=== PATIENT | male | born 1965 | race African-American/Black ===

== ENCOUNTER 2021-02-11 12:31 | Inpatient (IN) | payer OTHER ==
[~2021-02-11] VITALS: Ht 188 cm; Wt 94.8 kg
[2021-02-11 19:00] VITALS: BP 106/65
[2021-02-11] MEDS ORDERED: ACETAMINOPHEN 325 MG TABLET PO PRN (19:00)
[2021-02-11] MEDS ORDERED: BISMUTH SUBSALICYLATE 524 MG/30 ML SUSPENSION UDCUP PO PRN (19:15)
[2021-02-11] MEDS ORDERED: GLUCAGON,HUMAN RECOMBINANT 1 MG VIAL IM PRN (19:30)
[2021-02-11] MEDS ORDERED: IPRATROPIUM BROMIDE 0.5 MG/2.5 ML NEB SOLUTION NEB PRN (19:45)
[2021-02-11] MEDS ORDERED: DEXTROSE 40% LEMON 37.5 GM/TUBE GEL [15 GM GLUCOSE] PO PRN (19:45)
[2021-02-11] MEDS ORDERED: LOPERAMIDE HCL 2 MG CAPSULE PO PRN (19:45)
[2021-02-11] MEDS ORDERED: ONDANSETRON HCL 4 MG TABLET PO PRN (19:45)
[2021-02-11] MEDS ORDERED: ALBUTEROL SULFATE 2.5 MG/0.5 ML NEB SOLUTION NEB PRN (19:45)
[2021-02-11] MEDS ORDERED: DEXTROSE 50%-WATER 25 GM/50 ML SYRINGE IVP PRN (19:45)
[2021-02-11] MEDS ORDERED: INSULIN LISPRO 100 UNITS/ML SQ PRN (19:45)
[2021-02-11] MEDS: METOPROLOL TARTRATE 25 MG TABLET PO SCH (21:00)
[2021-02-11] MEDS: SENNA 187 MG TABLET PO SCH (21:16)
[2021-02-11] MEDS: GABAPENTIN 300 MG CAPSULE PO SCH (21:16)
[2021-02-11] MEDS: DOCUSATE SODIUM 100 MG CAPSULE PO SCH (21:16)
[2021-02-11 21:52] VITALS: BP 95/61
[2021-02-11 23:51] LABS: GLUCOMETER DEV NAME(LOC) 2WR.2B; GLUCOSE,POINT OF CARE 96 MG/DL (70-110)
[2021-02-12] VITALS (9 sets, daily range): BP systolic 87–121; BP diastolic 40–68
[2021-02-12] MEDS: PANTOPRAZOLE SODIUM 40 MG DR TABLET PO SCH (06:02)
[2021-02-12 06:25] LABS: GLUCOMETER DEV NAME(LOC) 2WR.2B; GLUCOSE,POINT OF CARE 72 MG/DL (70-110)
[2021-02-12] MEDS ORDERED: SEVELAMER CARBONATE 800 MG TABLET PO SCH (07:30)
[2021-02-12] MEDS: LACTOBAC ACID/BULG/BIFID/THERM TABLET PO SCH (08:23)
[2021-02-12] MEDS: VITAMIN B COMP/VIT C/FOLIC ACID CAPSULE PO SCH (08:23)
[2021-02-12] MEDS: METOPROLOL TARTRATE 25 MG TABLET PO SCH ×2 (08:27→21:03)
[2021-02-12] MEDS: DOCUSATE SODIUM 100 MG CAPSULE PO SCH ×2 (08:28→21:00)
[2021-02-12] MEDS: GABAPENTIN 300 MG CAPSULE PO SCH ×3 (08:28→20:57)
[2021-02-12] MEDS ORDERED: EPOETIN ALFA 10,000 UNITS/ML 2 ML VIAL SQ SCH (09:00)
[2021-02-12] MEDS ORDERED: INSULIN GLARGINE,HUM.REC.ANLOG 100 UNITS/ML SQ SCH (09:00)
[2021-02-12 09:24] LABS: BASOPHILS % (AUTO) 0.7 % (0.0-2.0); HEMATOCRIT 31.5 % (41-53); LYMPHOCYTES # (AUTO) 3.4 K/uL (1.0-4.8); LYMPHOCYTES % (AUTO) 36.3 % (22.0-44.0); MEAN CORPUSCULAR HEMOGLOBIN 29.6 pg (26.0-34.0); MEAN CORPUSCULAR HGB CONC 31.7 G/dL (31.0-37.0); MEAN CORPUSCULAR VOLUME 94 fL (80-100); MONOCYTES # (AUTO) 0.6 K/uL (0.1-1.0); MONOCYTES % (AUTO) 6.3 % (2.0-9.0); NEUTROPHILS # (AUTO) 5.2 K/uL (1.8-7.7); NEUTROPHILS % (AUTO) 54.7 % (40.0-70.0); PLATELET COUNT (AUTO) 303 K/uL (150-450); RED BLOOD CELL COUNT(AUTO) 3.37 MIL/uL (4.50-5.90); RED CELL DISTRIBUTION WIDTH 17.7 % (11.5-14.5)
[2021-02-12 09:41] LABS: ALBUMIN 2.8 g/dL (3.4-5.0); BILIRUBIN,TOTAL 0.2 mg/dL (0.1-1.0); CALCIUM, TOTAL 9.1 mg/dL (8.8-10.5); CREATININE 2.09 mg/dL (0.60-1.30); POTASSIUM 4.7 mmol/L (3.5-5.1); TOTAL PROTEIN, SERUM 7.6 g/dL (6.4-8.2)
[2021-02-12 12:30] LABS: GLUCOMETER DEV NAME(LOC) 2WR.2B; GLUCOSE,POINT OF CARE 65 MG/DL (70-110)
[2021-02-12] MEDS: SEVELAMER CARBONATE 800 MG POWDER PACKET PO SCH ×2 (12:52→17:50)
[2021-02-12 13:22] LABS: GLUCOMETER DEV NAME(LOC) 2WR.2B; GLUCOSE,POINT OF CARE 88 MG/DL (70-110)
[2021-02-12 13:22] LABS: GLUCOMETER DEV NAME(LOC) 2WR.1C; GLUCOSE,POINT OF CARE 107 MG/DL (70-110)
[2021-02-12 19:21] LABS: GLUCOMETER DEV NAME(LOC) 2WR.2B; GLUCOSE,POINT OF CARE 98 MG/DL (70-110)
[2021-02-12] MEDS: SENNA 187 MG TABLET PO SCH (21:00)
[2021-02-12] MEDS: CHLORHEXIDINE GLUCONATE 4% 118 ML TOPICAL LIQUID TP SCH (21:03)
[2021-02-12 22:51] LABS: GLUCOMETER DEV NAME(LOC) 2WR.1C; GLUCOSE,POINT OF CARE 95 MG/DL (70-110)
[2021-02-13 00:21] VITALS: BP 97/61
[2021-02-13] MEDS: PANTOPRAZOLE SODIUM 40 MG DR TABLET PO SCH (06:24)
[2021-02-13 06:39] LABS: GLUCOMETER DEV NAME(LOC) 2WR.2B; GLUCOSE,POINT OF CARE 77 MG/DL (70-110)
[2021-02-13] MEDS ORDERED: SEVELAMER CARBONATE 800 MG TABLET PO SCH (07:30)
[2021-02-13] MEDS: SEVELAMER CARBONATE 800 MG POWDER PACKET PO SCH ×3 (08:58→20:20)
[2021-02-13 09:00] VITALS: BP 120/71
[2021-02-13] MEDS: METOPROLOL TARTRATE 25 MG TABLET PO SCH ×2 (09:00→20:22)
[2021-02-13] MEDS: PARICALCITOL 1 MCG CAPSULE PO SCH (09:01)
[2021-02-13] MEDS: DOCUSATE SODIUM 100 MG CAPSULE PO SCH ×2 (09:01→20:24)
[2021-02-13] MEDS: LACTOBAC ACID/BULG/BIFID/THERM TABLET PO SCH (09:01)
[2021-02-13] MEDS: GABAPENTIN 300 MG CAPSULE PO SCH ×3 (09:01→20:22)
[2021-02-13] MEDS: VITAMIN B COMP/VIT C/FOLIC ACID CAPSULE PO SCH (09:01)
[2021-02-13] MEDS: EPOETIN ALFA 10,000 UNITS/ML VIAL SQ SCH (09:03)
[2021-02-13] MEDS: INSULIN GLARGINE,HUM.REC.ANLOG 100 UNITS/ML SQ SCH (09:08)
[2021-02-13 12:27] LABS: GLUCOMETER DEV NAME(LOC) 2WR.1C; GLUCOSE,POINT OF CARE 112 MG/DL (70-110)
[2021-02-13] MEDS ORDERED: SODIUM CHLORIDE 0.9% 1,000 ML ONE ×2 (15:24→15:25)
[2021-02-13 16:00] VITALS: BP 101/72
[2021-02-13] MEDS ORDERED: HEPARIN SODIUM,PORCINE 1,000 UNITS/ML VIAL ONE (16:40)
[2021-02-13] MEDS ORDERED: MANNITOL 25%-12.5 GM/50 ML VIAL IVP ONE (16:40)
[2021-02-13 17:35] LABS: CALCIUM, TOTAL 8.5 mg/dL (8.8-10.5); CREATININE 1.55 mg/dL (0.60-1.30); POTASSIUM 3.5 mmol/L (3.5-5.1)
[2021-02-13 19:55] VITALS: BP 103/69
[2021-02-13 20:12] LABS: GLUCOMETER DEV NAME(LOC) 2WR.1C; GLUCOSE,POINT OF CARE 80 MG/DL (70-110)
[2021-02-13] MEDS: CHLORHEXIDINE GLUCONATE 4% 118 ML TOPICAL LIQUID TP SCH (20:21)
[2021-02-13] MEDS: SENNA 187 MG TABLET PO SCH (20:24)
[2021-02-13 22:38] LABS: GLUCOMETER DEV NAME(LOC) 2WR.1C; GLUCOSE,POINT OF CARE 84 MG/DL (70-110)
[2021-02-14 03:00] VITALS: BP 102/62
[2021-02-14 05:41] LABS: GLUCOMETER DEV NAME(LOC) 2WR.2B; GLUCOSE,POINT OF CARE 74 MG/DL (70-110)
[2021-02-14] MEDS: PANTOPRAZOLE SODIUM 40 MG DR TABLET PO SCH (05:46)
[2021-02-14 08:15] VITALS: BP 105/65
[2021-02-14] MEDS: SEVELAMER CARBONATE 800 MG POWDER PACKET PO SCH ×3 (08:33→17:12)
[2021-02-14] MEDS: LACTOBAC ACID/BULG/BIFID/THERM TABLET PO SCH (08:34)
[2021-02-14] MEDS: METOPROLOL TARTRATE 25 MG TABLET PO SCH ×2 (08:35→20:54)
[2021-02-14] MEDS: VITAMIN B COMP/VIT C/FOLIC ACID CAPSULE PO SCH (08:36)
[2021-02-14] MEDS: GABAPENTIN 300 MG CAPSULE PO SCH ×3 (08:36→20:50)
[2021-02-14] MEDS: PARICALCITOL 1 MCG CAPSULE PO SCH (08:37)
[2021-02-14] MEDS: DOCUSATE SODIUM 100 MG CAPSULE PO SCH ×2 (08:42→20:57)
[2021-02-14] MEDS: INSULIN GLARGINE,HUM.REC.ANLOG 100 UNITS/ML SQ SCH (08:49)
[2021-02-14 16:11] VITALS: BP 110/63
[2021-02-14] MEDS: HEPARIN SODIUM,PORCINE 5,000 UNITS/ML VIAL SQ SCH ×2 (16:54→20:51)
[2021-02-14 18:27] LABS: GLUCOMETER DEV NAME(LOC) 2WR.2B; GLUCOSE,POINT OF CARE 72 MG/DL (70-110)
[2021-02-14] MEDS: ETHYL ALCOHOL 62% ANTISEPTIC NASAL INHALANT 0.6 ML AMPUL NASAL SCH (20:50)
[2021-02-14] MEDS: CHLORHEXIDINE GLUCONATE 4% 118 ML TOPICAL LIQUID TP SCH (20:57)
[2021-02-14] MEDS: SENNA 187 MG TABLET PO SCH (20:57)
[2021-02-15] VITALS: BP 100/66
[2021-02-15 05:50] LABS: GLUCOMETER DEV NAME(LOC) 2WR.2B; GLUCOSE,POINT OF CARE 91 MG/DL (70-110)
[2021-02-15] MEDS: PANTOPRAZOLE SODIUM 40 MG DR TABLET PO SCH (06:46)
[2021-02-15 08:02] VITALS: BP 99/58
[2021-02-15 08:30] VITALS: BP 114/66
[2021-02-15] MEDS: LACTOBAC ACID/BULG/BIFID/THERM TABLET PO SCH (08:42)
[2021-02-15] MEDS: ETHYL ALCOHOL 62% ANTISEPTIC NASAL INHALANT 0.6 ML AMPUL NASAL SCH ×2 (08:42→20:33)
[2021-02-15] MEDS: GABAPENTIN 300 MG CAPSULE PO SCH ×3 (08:42→20:35)
[2021-02-15] MEDS: PARICALCITOL 1 MCG CAPSULE PO SCH (08:42)
[2021-02-15] MEDS: SEVELAMER CARBONATE 800 MG POWDER PACKET PO SCH ×3 (08:42→17:39)
[2021-02-15] MEDS: VITAMIN B COMP/VIT C/FOLIC ACID CAPSULE PO SCH (08:42)
[2021-02-15] MEDS: HEPARIN SODIUM,PORCINE 5,000 UNITS/ML VIAL SQ SCH ×3 (08:42→20:35)
[2021-02-15] MEDS: METOPROLOL TARTRATE 25 MG TABLET PO SCH ×2 (08:42→20:34)
[2021-02-15] MEDS: DOCUSATE SODIUM 100 MG CAPSULE PO SCH (08:48)
[2021-02-15] MEDS: INSULIN GLARGINE,HUM.REC.ANLOG 100 UNITS/ML SQ SCH (09:00)
[2021-02-15] MEDS ORDERED: DOCUSATE SODIUM 100 MG CAPSULE PO PRN (11:15)
[2021-02-15] MEDS ORDERED: SENNA 187 MG TABLET PO PRN (11:15)
[2021-02-15 16:22] VITALS: BP 119/72
[2021-02-15 20:33] VITALS: BP 108/66
[2021-02-15] MEDS: CHLORHEXIDINE GLUCONATE 4% 118 ML TOPICAL LIQUID TP SCH (20:35)
[2021-02-15 21:21] LABS: GLUCOMETER DEV NAME(LOC) 2WR.1C; GLUCOSE,POINT OF CARE 128 MG/DL (70-110)
[2021-02-16 00:15] VITALS: BP 94/61
[2021-02-16 06:04] LABS: GLUCOMETER DEV NAME(LOC) 2WR.2B; GLUCOSE,POINT OF CARE 63 MG/DL (70-110)
[2021-02-16 06:04] LABS: GLUCOMETER DEV NAME(LOC) 2WR.2B; GLUCOSE,POINT OF CARE 81 MG/DL (70-110)
[2021-02-16] MEDS: PANTOPRAZOLE SODIUM 40 MG DR TABLET PO SCH (08:15)
[2021-02-16] MEDS: LACTOBAC ACID/BULG/BIFID/THERM TABLET PO SCH (08:16)
[2021-02-16] MEDS: ETHYL ALCOHOL 62% ANTISEPTIC NASAL INHALANT 0.6 ML AMPUL NASAL SCH ×2 (08:16→20:57)
[2021-02-16] MEDS: GABAPENTIN 300 MG CAPSULE PO SCH ×3 (08:17→20:57)
[2021-02-16] MEDS: HEPARIN SODIUM,PORCINE 5,000 UNITS/ML VIAL SQ SCH ×3 (08:17→20:57)
[2021-02-16] MEDS: VITAMIN B COMP/VIT C/FOLIC ACID CAPSULE PO SCH (08:17)
[2021-02-16] MEDS: INSULIN GLARGINE,HUM.REC.ANLOG 100 UNITS/ML SQ SCH (08:19)
[2021-02-16] MEDS: PARICALCITOL 1 MCG CAPSULE PO SCH (08:19)
[2021-02-16] MEDS: SEVELAMER CARBONATE 800 MG POWDER PACKET PO SCH ×3 (08:20→17:43)
[2021-02-16 09:00] VITALS: BP 89/58
[2021-02-16 09:20] VITALS: BP 110/64
[2021-02-16 09:35] VITALS: BP 100/68
[2021-02-16] MEDS: METOPROLOL TARTRATE 25 MG TABLET PO SCH ×2 (11:32→20:57)
[2021-02-16] MEDS: EPOETIN ALFA 10,000 UNITS/ML VIAL SQ SCH (11:34)
[2021-02-16 15:42] LABS: CALCIUM, TOTAL 8.8 mg/dL (8.8-10.5); CREATININE 2.18 mg/dL (0.60-1.30); POTASSIUM 4.9 mmol/L (3.5-5.1)
[2021-02-16 17:19] VITALS: BP 103/52
[2021-02-16 18:42] LABS: GLUCOMETER DEV NAME(LOC) 2WR.1C; GLUCOSE,POINT OF CARE 67 MG/DL (70-110)
[2021-02-16 18:42] LABS: GLUCOMETER DEV NAME(LOC) 2WR.2B; GLUCOSE,POINT OF CARE 79 MG/DL (70-110)
[2021-02-16] MEDS: MUPIROCIN CALCIUM 2% 22 GM OINTMENT TP SCH (20:57)
[2021-02-16] MEDS: CHLORHEXIDINE GLUCONATE 4% 118 ML TOPICAL LIQUID TP SCH (20:58)
[2021-02-16 21:00] VITALS: BP 103/61
[2021-02-16 21:32] LABS: GLUCOMETER DEV NAME(LOC) 2WR.1C; GLUCOSE,POINT OF CARE 109 MG/DL (70-110)
[2021-02-17 05:30] VITALS: BP 101/65
[2021-02-17 05:31] LABS: GLUCOMETER DEV NAME(LOC) 2WR.2B; GLUCOSE,POINT OF CARE 67 MG/DL (70-110)
[2021-02-17 05:31] LABS: GLUCOMETER DEV NAME(LOC) 2WR.2B; GLUCOSE,POINT OF CARE 71 MG/DL (70-110)
[2021-02-17] MEDS: PANTOPRAZOLE SODIUM 40 MG DR TABLET PO SCH (06:48)
[2021-02-17] MEDS: ETHYL ALCOHOL 62% ANTISEPTIC NASAL INHALANT 0.6 ML AMPUL NASAL SCH ×2 (08:03→20:48)
[2021-02-17] MEDS: SEVELAMER CARBONATE 800 MG POWDER PACKET PO SCH ×3 (08:03→17:37)
[2021-02-17 08:50] LABS: CREATININE,URINE 95.8 mg/dL (30.0-125.0)
[2021-02-17] MEDS ORDERED: INSULIN GLARGINE,HUM.REC.ANLOG 100 UNITS/ML SQ SCH (09:00)
[2021-02-17 09:14] VITALS: BP 88/55
[2021-02-17 09:51] LABS: CALCIUM, TOTAL 8.7 mg/dL (8.8-10.5); CREATININE 2.28 mg/dL (0.60-1.30); POTASSIUM 4.6 mmol/L (3.5-5.1)
[2021-02-17] MEDS: METOPROLOL TARTRATE 25 MG TABLET PO SCH ×2 (09:55→20:49)
[2021-02-17] MEDS: GABAPENTIN 300 MG CAPSULE PO SCH ×3 (09:55→20:49)
[2021-02-17] MEDS: LACTOBAC ACID/BULG/BIFID/THERM TABLET PO SCH (09:55)
[2021-02-17] MEDS: VITAMIN B COMP/VIT C/FOLIC ACID CAPSULE PO SCH (09:55)
[2021-02-17] MEDS: PARICALCITOL 1 MCG CAPSULE PO SCH (09:56)
[2021-02-17] MEDS: HEPARIN SODIUM,PORCINE 5,000 UNITS/ML VIAL SQ SCH ×3 (09:56→20:48)
[2021-02-17] MEDS: MUPIROCIN CALCIUM 2% 22 GM OINTMENT TP SCH ×2 (09:57→20:49)
[2021-02-17 11:06] LABS: CREATININE,SERUM FOR CRCL 2.18 mg/dL (0.60-1.30)
[2021-02-17 16:10] VITALS: BP 105/67
[2021-02-17 20:47] VITALS: BP 104/64
[2021-02-17] MEDS: CHLORHEXIDINE GLUCONATE 4% 118 ML TOPICAL LIQUID TP SCH (20:49)
[2021-02-18] VITALS: BP 91/55
[2021-02-18 05:14] LABS: GLUCOMETER DEV NAME(LOC) 2WR.1C; GLUCOSE,POINT OF CARE 81 MG/DL (70-110)
[2021-02-18] MEDS: PANTOPRAZOLE SODIUM 40 MG DR TABLET PO SCH (05:58)
[2021-02-18 06:16] LABS: GLUCOMETER DEV NAME(LOC) 2WR.1C; GLUCOSE,POINT OF CARE 102 MG/DL (70-110)
[2021-02-18 08:05] VITALS: BP 110/70
[2021-02-18] MEDS: SEVELAMER CARBONATE 800 MG POWDER PACKET PO SCH ×3 (08:30→17:47)
[2021-02-18] MEDS: VITAMIN B COMP/VIT C/FOLIC ACID CAPSULE PO SCH (08:34)
[2021-02-18] MEDS: LACTOBAC ACID/BULG/BIFID/THERM TABLET PO SCH (08:34)
[2021-02-18] MEDS: METOPROLOL TARTRATE 25 MG TABLET PO SCH ×2 (08:34→20:01)
[2021-02-18] MEDS: PARICALCITOL 1 MCG CAPSULE PO SCH (08:34)
[2021-02-18] MEDS: HEPARIN SODIUM,PORCINE 5,000 UNITS/ML VIAL SQ SCH ×3 (08:34→20:01)
[2021-02-18] MEDS: GABAPENTIN 300 MG CAPSULE PO SCH ×3 (08:34→20:01)
[2021-02-18] MEDS: EPOETIN ALFA 10,000 UNITS/ML VIAL SQ SCH (08:36)
[2021-02-18] MEDS: INSULIN GLARGINE,HUM.REC.ANLOG 100 UNITS/ML SQ SCH ×2 (08:45→09:00)
[2021-02-18] MEDS: MUPIROCIN CALCIUM 2% 22 GM OINTMENT TP SCH ×2 (08:56→20:01)
[2021-02-18] MEDS: ETHYL ALCOHOL 62% ANTISEPTIC NASAL INHALANT 0.6 ML AMPUL NASAL SCH ×2 (08:56→20:01)
[2021-02-18 12:16] LABS: CALCIUM, TOTAL 8.6 mg/dL (8.8-10.5); CREATININE 2.01 mg/dL (0.60-1.30); POTASSIUM 4.8 mmol/L (3.5-5.1)
[2021-02-18 15:36] LABS: GLUCOMETER DEV NAME(LOC) 2WR.1C; GLUCOSE,POINT OF CARE 62 MG/DL (70-110)
[2021-02-18 16:00] VITALS: BP 118/68
[2021-02-18 17:41] LABS: GLUCOMETER DEV NAME(LOC) 2WR.1C; GLUCOSE,POINT OF CARE 85 MG/DL (70-110)
[2021-02-18] MEDS ORDERED: GABA-1181 PO (19:35)
[2021-02-18] MEDS ORDERED: ACID1TAB13 PO (19:35)
[2021-02-18] MEDS ORDERED: B CO1CAP6 PO (19:55)
[2021-02-18] MEDS ORDERED: PANT-31 PO (19:55)
[2021-02-18] MEDS ORDERED: SEVE0.8P6 PO (19:55)
[2021-02-18] MEDS ORDERED: PARI1CAP11 PO (19:55)
[2021-02-18] MEDS ORDERED: METO25 PO (19:55)
[2021-02-18] MEDS: CHLORHEXIDINE GLUCONATE 4% 118 ML TOPICAL LIQUID TP SCH (20:02)
[2021-02-18 20:03] VITALS: BP 116/60
[2021-02-19] VITALS: BP 112/64
[2021-02-19 05:01] LABS: GLUCOMETER DEV NAME(LOC) 2WR.2B; GLUCOSE,POINT OF CARE 65 MG/DL (70-110)
[2021-02-19] MEDS: PANTOPRAZOLE SODIUM 40 MG DR TABLET PO SCH (05:03)
[2021-02-19 05:28] LABS: GLUCOMETER DEV NAME(LOC) 2WR.1C; GLUCOSE,POINT OF CARE 80 MG/DL (70-110)
[2021-02-19] MEDS: SEVELAMER CARBONATE 800 MG POWDER PACKET PO SCH ×3 (08:23→17:32)
[2021-02-19] MEDS: ETHYL ALCOHOL 62% ANTISEPTIC NASAL INHALANT 0.6 ML AMPUL NASAL SCH ×2 (08:23→21:08)
[2021-02-19] MEDS: METOPROLOL TARTRATE 25 MG TABLET PO SCH ×2 (08:24→21:08)
[2021-02-19] MEDS: LACTOBAC ACID/BULG/BIFID/THERM TABLET PO SCH (08:24)
[2021-02-19] MEDS: VITAMIN B COMP/VIT C/FOLIC ACID CAPSULE PO SCH (08:24)
[2021-02-19] MEDS: MUPIROCIN CALCIUM 2% 22 GM OINTMENT TP SCH ×2 (08:25→21:09)
[2021-02-19] MEDS: PARICALCITOL 1 MCG CAPSULE PO SCH (08:25)
[2021-02-19] MEDS: GABAPENTIN 300 MG CAPSULE PO SCH ×3 (08:25→21:08)
[2021-02-19] MEDS: HEPARIN SODIUM,PORCINE 5,000 UNITS/ML VIAL SQ SCH ×3 (08:25→21:09)
[2021-02-19 08:57] VITALS: BP 93/54
[2021-02-19 15:30] LABS: CALCIUM, TOTAL 8.8 mg/dL (8.8-10.5); CREATININE 1.99 mg/dL (0.60-1.30); POTASSIUM 4.3 mmol/L (3.5-5.1)
[2021-02-19 16:36] VITALS: BP 104/72
[2021-02-19 18:21] LABS: GLUCOMETER DEV NAME(LOC) 2WR.2B; GLUCOSE,POINT OF CARE 101 MG/DL (70-110)
[2021-02-19] MEDS: CHLORHEXIDINE GLUCONATE 4% 118 ML TOPICAL LIQUID TP SCH (21:09)
[2021-02-20 00:29] VITALS: BP 106/65
[2021-02-20 05:22] LABS: GLUCOMETER DEV NAME(LOC) 2WR.1C; GLUCOSE,POINT OF CARE 95 MG/DL (70-110)
[2021-02-20] MEDS: ETHYL ALCOHOL 62% ANTISEPTIC NASAL INHALANT 0.6 ML AMPUL NASAL SCH ×2 (07:32→20:52)
[2021-02-20] MEDS: GABAPENTIN 300 MG CAPSULE PO SCH ×3 (07:32→20:52)
[2021-02-20] MEDS: VITAMIN B COMP/VIT C/FOLIC ACID CAPSULE PO SCH (07:33)
[2021-02-20] MEDS: PARICALCITOL 1 MCG CAPSULE PO SCH (07:33)
[2021-02-20] MEDS: LACTOBAC ACID/BULG/BIFID/THERM TABLET PO SCH (07:33)
[2021-02-20] MEDS: PANTOPRAZOLE SODIUM 40 MG DR TABLET PO SCH (07:34)
[2021-02-20] MEDS: METOPROLOL TARTRATE 25 MG TABLET PO SCH ×2 (07:34→20:51)
[2021-02-20] MEDS: HEPARIN SODIUM,PORCINE 5,000 UNITS/ML VIAL SQ SCH ×3 (07:35→20:52)
[2021-02-20] MEDS: EPOETIN ALFA 10,000 UNITS/ML VIAL SQ SCH (07:36)
[2021-02-20] MEDS: SEVELAMER CARBONATE 800 MG POWDER PACKET PO SCH ×3 (07:49→18:03)
[2021-02-20] MEDS: MUPIROCIN CALCIUM 2% 22 GM OINTMENT TP SCH ×2 (07:49→20:56)
[2021-02-20 10:07] LABS: CALCIUM, TOTAL 8.3 mg/dL (8.8-10.5); CREATININE 1.94 mg/dL (0.60-1.30); POTASSIUM 4.7 mmol/L (3.5-5.1)
[2021-02-20 13:26] VITALS: BP 108/60
[2021-02-20 19:09] VITALS: BP 113/70
[2021-02-20 19:58] LABS: CREATININE,URINE 75.1 mg/dL (30.0-125.0)
[2021-02-20 20:02] LABS: CREATININE,SERUM FOR CRCL 1.94 mg/dL (0.60-1.30)
[2021-02-20] MEDS: CHLORHEXIDINE GLUCONATE 4% 118 ML TOPICAL LIQUID TP SCH (20:56)
[2021-02-20 21:20] LABS: GLUCOMETER DEV NAME(LOC) 2WR.2B; GLUCOSE,POINT OF CARE 83 MG/DL (70-110)
[2021-02-21 00:01] VITALS: BP 110/70
[2021-02-21 05:52] LABS: GLUCOMETER DEV NAME(LOC) 2WR.2B; GLUCOSE,POINT OF CARE 90 MG/DL (70-110)
[2021-02-21 08:00] VITALS: BP 98/54
[2021-02-21] MEDS: PANTOPRAZOLE SODIUM 40 MG DR TABLET PO SCH (08:02)
[2021-02-21] MEDS: SEVELAMER CARBONATE 800 MG POWDER PACKET PO SCH ×3 (08:03→17:28)
[2021-02-21] MEDS: ETHYL ALCOHOL 62% ANTISEPTIC NASAL INHALANT 0.6 ML AMPUL NASAL SCH ×2 (08:53→20:31)
[2021-02-21] MEDS: LACTOBAC ACID/BULG/BIFID/THERM TABLET PO SCH (08:54)
[2021-02-21] MEDS: VITAMIN B COMP/VIT C/FOLIC ACID CAPSULE PO SCH (08:54)
[2021-02-21] MEDS: METOPROLOL TARTRATE 25 MG TABLET PO SCH ×2 (08:54→20:31)
[2021-02-21] MEDS: GABAPENTIN 300 MG CAPSULE PO SCH ×3 (08:55→20:31)
[2021-02-21] MEDS: PARICALCITOL 1 MCG CAPSULE PO SCH (08:55)
[2021-02-21] MEDS: MUPIROCIN CALCIUM 2% 22 GM OINTMENT TP SCH ×2 (08:55→20:32)
[2021-02-21] MEDS: HEPARIN SODIUM,PORCINE 5,000 UNITS/ML VIAL SQ SCH ×3 (08:55→20:31)
[2021-02-21 09:00] VITALS: BP 98/54
[2021-02-21 16:32] VITALS: BP 105/65
[2021-02-21 20:32] VITALS: BP 100/62
[2021-02-21] MEDS: CHLORHEXIDINE GLUCONATE 4% 118 ML TOPICAL LIQUID TP SCH (20:32)
[2021-02-22] VITALS: BP 112/71
[2021-02-22] MEDS: PANTOPRAZOLE SODIUM 40 MG DR TABLET PO SCH (06:14)
[2021-02-22] MEDS: SEVELAMER CARBONATE 800 MG POWDER PACKET PO SCH ×3 (07:38→18:50)
[2021-02-22] MEDS: PSYLLIUM SEED ORANGE SF 5.8 GM/PACKET PO SCH (07:39)
[2021-02-22] MEDS: ETHYL ALCOHOL 62% ANTISEPTIC NASAL INHALANT 0.6 ML AMPUL NASAL SCH ×2 (07:40→20:13)
[2021-02-22] MEDS: PARICALCITOL 1 MCG CAPSULE PO SCH (07:40)
[2021-02-22] MEDS: GABAPENTIN 300 MG CAPSULE PO SCH ×3 (07:41→20:12)
[2021-02-22] MEDS: VITAMIN B COMP/VIT C/FOLIC ACID CAPSULE PO SCH (07:41)
[2021-02-22] MEDS: METOPROLOL TARTRATE 25 MG TABLET PO SCH ×2 (07:41→20:13)
[2021-02-22] MEDS: LACTOBAC ACID/BULG/BIFID/THERM TABLET PO SCH (07:41)
[2021-02-22] MEDS: HEPARIN SODIUM,PORCINE 5,000 UNITS/ML VIAL SQ SCH ×3 (07:42→20:12)
[2021-02-22] MEDS: MUPIROCIN CALCIUM 2% 22 GM OINTMENT TP SCH ×2 (08:17→20:16)
[2021-02-22 08:21] VITALS: BP 110/69
[2021-02-22 16:05] VITALS: BP 108/70
[2021-02-22 20:14] VITALS: BP 128/74
[2021-02-22] MEDS: CHLORHEXIDINE GLUCONATE 4% 118 ML TOPICAL LIQUID TP SCH (20:16)
[2021-02-23] VITALS: BP 110/63
[2021-02-23] MEDS: PANTOPRAZOLE SODIUM 40 MG DR TABLET PO SCH (06:01)
[2021-02-23] MEDS: SEVELAMER CARBONATE 800 MG POWDER PACKET PO SCH ×3 (08:01→17:16)
[2021-02-23] MEDS: EPOETIN ALFA 10,000 UNITS/ML VIAL SQ SCH (08:02)
[2021-02-23] MEDS: PSYLLIUM SEED ORANGE SF 5.8 GM/PACKET PO SCH (08:02)
[2021-02-23] MEDS: LACTOBAC ACID/BULG/BIFID/THERM TABLET PO SCH (08:03)
[2021-02-23] MEDS: METOPROLOL TARTRATE 25 MG TABLET PO SCH ×2 (08:04→20:26)
[2021-02-23] MEDS: PARICALCITOL 1 MCG CAPSULE PO SCH (08:04)
[2021-02-23] MEDS: VITAMIN B COMP/VIT C/FOLIC ACID CAPSULE PO SCH (08:04)
[2021-02-23] MEDS: GABAPENTIN 300 MG CAPSULE PO SCH ×3 (08:04→20:25)
[2021-02-23] MEDS: HEPARIN SODIUM,PORCINE 5,000 UNITS/ML VIAL SQ SCH ×3 (08:05→20:26)
[2021-02-23] MEDS: MUPIROCIN CALCIUM 2% 22 GM OINTMENT TP SCH ×2 (08:05→20:27)
[2021-02-23] MEDS: ETHYL ALCOHOL 62% ANTISEPTIC NASAL INHALANT 0.6 ML AMPUL NASAL SCH ×2 (08:14→20:25)
[2021-02-23 08:15] VITALS: BP 102/67
[2021-02-23] MEDS ORDERED: LIDOCAINE/PF 1% 5 ML VIAL ONE (10:02)
[2021-02-23 16:22] VITALS: BP 112/64
[2021-02-24 02:13] VITALS: BP 103/66
[2021-02-24] MEDS: PANTOPRAZOLE SODIUM 40 MG DR TABLET PO SCH (06:09)
[2021-02-24] MEDS: SEVELAMER CARBONATE 800 MG POWDER PACKET PO SCH ×3 (07:51→17:41)
[2021-02-24] MEDS: PSYLLIUM SEED ORANGE SF 5.8 GM/PACKET PO SCH (07:52)
[2021-02-24] MEDS: PARICALCITOL 1 MCG CAPSULE PO SCH (07:53)
[2021-02-24] MEDS: VITAMIN B COMP/VIT C/FOLIC ACID CAPSULE PO SCH (07:53)
[2021-02-24] MEDS: LACTOBAC ACID/BULG/BIFID/THERM TABLET PO SCH (07:53)
[2021-02-24] MEDS: METOPROLOL TARTRATE 25 MG TABLET PO SCH ×2 (07:54→20:26)
[2021-02-24] MEDS: GABAPENTIN 300 MG CAPSULE PO SCH ×3 (07:54→20:26)
[2021-02-24] MEDS: HEPARIN SODIUM,PORCINE 5,000 UNITS/ML VIAL SQ SCH ×3 (07:54→20:26)
[2021-02-24] MEDS: ETHYL ALCOHOL 62% ANTISEPTIC NASAL INHALANT 0.6 ML AMPUL NASAL SCH ×2 (07:54→20:26)
[2021-02-24] MEDS: MUPIROCIN CALCIUM 2% 22 GM OINTMENT TP SCH ×2 (07:54→20:26)
[2021-02-24 08:10] VITALS: BP 100/63
[2021-02-24 16:02] VITALS: BP 100/60
[2021-02-24 20:28] VITALS: BP 106/56
[2021-02-25 01:27] VITALS: BP 97/59
[2021-02-25] MEDS: PANTOPRAZOLE SODIUM 40 MG DR TABLET PO SCH (05:44)
[2021-02-25] MEDS: PSYLLIUM SEED ORANGE SF 5.8 GM/PACKET PO SCH (07:15)
[2021-02-25] MEDS: EPOETIN ALFA 10,000 UNITS/ML VIAL SQ SCH (07:15)
[2021-02-25] MEDS: PARICALCITOL 1 MCG CAPSULE PO SCH (07:15)
[2021-02-25] MEDS: SEVELAMER CARBONATE 800 MG POWDER PACKET PO SCH ×3 (07:15→17:37)
[2021-02-25] MEDS: VITAMIN B COMP/VIT C/FOLIC ACID CAPSULE PO SCH (07:16)
[2021-02-25] MEDS: GABAPENTIN 300 MG CAPSULE PO SCH ×3 (07:16→20:57)
[2021-02-25] MEDS: METOPROLOL TARTRATE 25 MG TABLET PO SCH ×2 (07:16→20:57)
[2021-02-25] MEDS: ETHYL ALCOHOL 62% ANTISEPTIC NASAL INHALANT 0.6 ML AMPUL NASAL SCH ×2 (07:16→20:57)
[2021-02-25] MEDS: LACTOBAC ACID/BULG/BIFID/THERM TABLET PO SCH (07:16)
[2021-02-25] MEDS: HEPARIN SODIUM,PORCINE 5,000 UNITS/ML VIAL SQ SCH ×3 (07:16→20:57)
[2021-02-25 09:00] VITALS: BP 101/64
[2021-02-25] MEDS: MUPIROCIN CALCIUM 2% 22 GM OINTMENT TP SCH ×2 (13:00→20:58)
[2021-02-25 16:57] VITALS: BP 103/62
[2021-02-25 20:20] VITALS: BP 109/65
[2021-02-26 02:50] VITALS: BP 98/59
[2021-02-26] MEDS: PANTOPRAZOLE SODIUM 40 MG DR TABLET PO SCH (07:26)
[2021-02-26] MEDS: PARICALCITOL 1 MCG CAPSULE PO SCH (07:26)
[2021-02-26] MEDS: SEVELAMER CARBONATE 800 MG POWDER PACKET PO SCH ×3 (07:27→17:40)
[2021-02-26] MEDS: PSYLLIUM SEED ORANGE SF 5.8 GM/PACKET PO SCH (07:34)
[2021-02-26] MEDS: HEPARIN SODIUM,PORCINE 5,000 UNITS/ML VIAL SQ SCH ×3 (07:34→20:34)
[2021-02-26] MEDS: ETHYL ALCOHOL 62% ANTISEPTIC NASAL INHALANT 0.6 ML AMPUL NASAL SCH ×2 (07:34→21:37)
[2021-02-26] MEDS: GABAPENTIN 300 MG CAPSULE PO SCH ×3 (07:35→20:33)
[2021-02-26] MEDS: VITAMIN B COMP/VIT C/FOLIC ACID CAPSULE PO SCH (07:35)
[2021-02-26] MEDS: LACTOBAC ACID/BULG/BIFID/THERM TABLET PO SCH (07:35)
[2021-02-26] MEDS: METOPROLOL TARTRATE 25 MG TABLET PO SCH ×2 (07:35→20:30)
[2021-02-26] MEDS: MUPIROCIN CALCIUM 2% 22 GM OINTMENT TP SCH ×2 (09:07→20:35)
[2021-02-26 09:14] VITALS: BP 106/70
[2021-02-26 16:09] VITALS: BP 102/65
[2021-02-26 20:26] VITALS: BP 112/69
[2021-02-27] VITALS: BP 166/66
[2021-02-27] MEDS: PANTOPRAZOLE SODIUM 40 MG DR TABLET PO SCH (06:33)
[2021-02-27] MEDS: SEVELAMER CARBONATE 800 MG POWDER PACKET PO SCH ×3 (08:47→17:44)
[2021-02-27] MEDS: LACTOBAC ACID/BULG/BIFID/THERM TABLET PO SCH (08:48)
[2021-02-27] MEDS: PSYLLIUM SEED ORANGE SF 5.8 GM/PACKET PO SCH (08:48)
[2021-02-27] MEDS: VITAMIN B COMP/VIT C/FOLIC ACID CAPSULE PO SCH (08:48)
[2021-02-27] MEDS: ETHYL ALCOHOL 62% ANTISEPTIC NASAL INHALANT 0.6 ML AMPUL NASAL SCH ×2 (08:48→20:17)
[2021-02-27] MEDS: PARICALCITOL 1 MCG CAPSULE PO SCH (08:48)
[2021-02-27] MEDS: HEPARIN SODIUM,PORCINE 5,000 UNITS/ML VIAL SQ SCH ×3 (08:49→20:16)
[2021-02-27] MEDS: GABAPENTIN 300 MG CAPSULE PO SCH ×3 (08:49→20:16)
[2021-02-27] MEDS: METOPROLOL TARTRATE 25 MG TABLET PO SCH ×2 (08:49→20:17)
[2021-02-27] MEDS: EPOETIN ALFA 10,000 UNITS/ML VIAL SQ SCH (08:50)
[2021-02-27] MEDS: MUPIROCIN CALCIUM 2% 22 GM OINTMENT TP SCH ×2 (09:15→20:17)
[2021-02-27 11:16] VITALS: BP 99/65
[2021-02-27 16:34] VITALS: BP 112/62
[2021-02-27 20:05] VITALS: BP 111/70
[2021-02-28] VITALS: BP 107/63
[2021-02-28] MEDS: PANTOPRAZOLE SODIUM 40 MG DR TABLET PO SCH (08:07)
[2021-02-28] MEDS: SEVELAMER CARBONATE 800 MG POWDER PACKET PO SCH ×3 (08:07→17:50)
[2021-02-28 08:10] VITALS: BP 100/76
[2021-02-28] MEDS: ETHYL ALCOHOL 62% ANTISEPTIC NASAL INHALANT 0.6 ML AMPUL NASAL SCH ×2 (08:49→20:21)
[2021-02-28] MEDS: LACTOBAC ACID/BULG/BIFID/THERM TABLET PO SCH (08:49)
[2021-02-28] MEDS: METOPROLOL TARTRATE 25 MG TABLET PO SCH ×2 (08:50→20:21)
[2021-02-28] MEDS: PARICALCITOL 1 MCG CAPSULE PO SCH (08:51)
[2021-02-28] MEDS: PSYLLIUM SEED ORANGE SF 5.8 GM/PACKET PO SCH (08:51)
[2021-02-28] MEDS: VITAMIN B COMP/VIT C/FOLIC ACID CAPSULE PO SCH (08:51)
[2021-02-28] MEDS: GABAPENTIN 300 MG CAPSULE PO SCH ×3 (08:51→20:21)
[2021-02-28] MEDS: MUPIROCIN CALCIUM 2% 22 GM OINTMENT TP SCH (08:52)
[2021-02-28] MEDS: HEPARIN SODIUM,PORCINE 5,000 UNITS/ML VIAL SQ SCH ×3 (08:52→20:21)
[2021-02-28 16:17] VITALS: BP 109/68
[2021-02-28 20:05] VITALS: BP 111/67
[2021-03-01 04:17] VITALS: BP 105/62
[2021-03-01] MEDS: PANTOPRAZOLE SODIUM 40 MG DR TABLET PO SCH (08:09)
[2021-03-01] MEDS: LACTOBAC ACID/BULG/BIFID/THERM TABLET PO SCH (08:09)
[2021-03-01] MEDS: SEVELAMER CARBONATE 800 MG POWDER PACKET PO SCH ×3 (08:10→17:00)
[2021-03-01] MEDS: GABAPENTIN 300 MG CAPSULE PO SCH ×3 (08:11→20:27)
[2021-03-01] MEDS: VITAMIN B COMP/VIT C/FOLIC ACID CAPSULE PO SCH (08:11)
[2021-03-01] MEDS: ETHYL ALCOHOL 62% ANTISEPTIC NASAL INHALANT 0.6 ML AMPUL NASAL SCH ×2 (08:11→20:27)
[2021-03-01] MEDS: METOPROLOL TARTRATE 25 MG TABLET PO SCH ×2 (08:12→20:27)
[2021-03-01] MEDS: HEPARIN SODIUM,PORCINE 5,000 UNITS/ML VIAL SQ SCH ×3 (08:13→20:27)
[2021-03-01] MEDS: PSYLLIUM SEED ORANGE SF 5.8 GM/PACKET PO SCH (08:19)
[2021-03-01] MEDS: PARICALCITOL 1 MCG CAPSULE PO SCH (08:20)
[2021-03-01 08:30] VITALS: BP 112/71
[2021-03-01 16:09] VITALS: BP 117/64
[2021-03-01 20:30] VITALS: BP 100/66
[2021-03-02] MEDS ORDERED: PSYL283P35 PO (01:13)
[2021-03-02 02:30] VITALS: BP 108/65
[2021-03-02] MEDS: PANTOPRAZOLE SODIUM 40 MG DR TABLET PO SCH (05:35)
[2021-03-02] MEDS: LACTOBAC ACID/BULG/BIFID/THERM TABLET PO SCH (08:41)
[2021-03-02] MEDS: PARICALCITOL 1 MCG CAPSULE PO SCH (08:41)
[2021-03-02] MEDS: VITAMIN B COMP/VIT C/FOLIC ACID CAPSULE PO SCH (08:41)
[2021-03-02] MEDS: GABAPENTIN 300 MG CAPSULE PO SCH (08:43)
[2021-03-02] MEDS: HEPARIN SODIUM,PORCINE 5,000 UNITS/ML VIAL SQ SCH (08:45)
[2021-03-02] MEDS: METOPROLOL TARTRATE 25 MG TABLET PO SCH (08:50)
[2021-03-02] MEDS: ETHYL ALCOHOL 62% ANTISEPTIC NASAL INHALANT 0.6 ML AMPUL NASAL SCH (08:52)
[2021-03-02] MEDS: PSYLLIUM SEED ORANGE SF 5.8 GM/PACKET PO SCH (08:54)
[2021-03-02] MEDS: SEVELAMER CARBONATE 800 MG POWDER PACKET PO SCH (08:54)
[2021-03-02] MEDS: EPOETIN ALFA 10,000 UNITS/ML VIAL SQ SCH (08:56)
[2021-03-02 09:51] VITALS: BP 117/70
== END 2021-03-02 11:45 | disposition home or self-care (01) | DRG 947 ==
LOC: EDSTATUS 12:31 → 2WR 18:15
PROVIDERS: ADMIT Physical Medicine & Rehabilitation; ATTEND Physical Medicine & Rehabilitation
PROC: 0JPT0XZ Removal of Tunneled Vascular Access Device from Trunk Subcutaneous Tissue and Fascia, Open Approach (ICD-10-PCS; principal; 2021-02-11)
DX: R53.81 Other malaise (principal); A41.59 Other Gram-negative sepsis; K65.9 Peritonitis, unspecified; J18.9 Pneumonia, unspecified organism; J96.20 Acute and chronic respiratory failure, unspecified whether with hypoxia or hypercapnia; G82.50 Quadriplegia, unspecified; N18.6 End stage renal disease; N17.9 Acute kidney failure, unspecified; E46 Unspecified protein-calorie malnutrition; E11.40 Type 2 diabetes mellitus with diabetic neuropathy, unspecified; V83.9XXA Unspecified occupant of special industrial vehicle injured in nontraffic accident, initial encounter; I10 Essential (primary) hypertension; E78.5 Hyperlipidemia, unspecified
CPT/HCPCS: 36590; 80048; 80053; 82575; 82962; 83036; 85025; 87070; 87077; 87081; 87186; 87205; 87340; 92507; 92523; 93005; 93970; 97110; 97112; 97116; 97140; 97162; 97167; 97530; 97535; 99366; J0885; J1644; J1815; J2001; J2150; J7030; Q0162